=== PATIENT | male | born 1930 | race Caucasian/White ===

== ENCOUNTER 2017-02-06 23:31 | Inpatient (IN) | payer MEDICARE, OTHER ==
[~2017-02-06] VITALS: Ht 188 cm; Wt 68.0 kg
[2017-02-06] MEDS ORDERED: Zosyn 4.5gm inj ONE (23:34)
[2017-02-06 23:40] VITALS: BP 71/45
[2017-02-06] MEDS ORDERED: MILK OF MA2400 MG/10 ORAL (23:51)
[2017-02-06] MEDS ORDERED: ATORVASTATIN CA10 MG ORAL (23:51)
[2017-02-06] MEDS ORDERED: PSYLLIUM PACKET PO (23:51)
[2017-02-06] MEDS ORDERED: AMLODIPINE BES2.5 MG ORAL (23:51)
[2017-02-06] MEDS ORDERED: ZOFRAN4 M3 ORAL (23:51)
[2017-02-06] MEDS ORDERED: VITAMIN B-1100 MG ORAL (23:51)
[2017-02-06] MEDS ORDERED: RIVASTIGMINE1 EAC1 TD (23:51)
[2017-02-06] MEDS ORDERED: DOCUSATE SODIU100 MG ORAL (23:51)
[2017-02-06] MEDS ORDERED: METOPROLOL TART25 MG ORAL (23:51)
[2017-02-06] MEDS ORDERED: ASPIRIN EC81 MG ORAL (23:51)
[2017-02-06] MEDS ORDERED: BISACODYL10 M1 RC (23:51)
[2017-02-06] MEDS ORDERED: TYLENOL325 MG ORAL (23:51)
[2017-02-06] MEDS ORDERED: NAMENDA10 MG ORAL (23:51)
[2017-02-06] MEDS ORDERED: VITAMIN D1000 UNI1 ORAL (23:51)
[2017-02-06] MEDS ORDERED: TRAMADOL HCL50 MG ORAL (23:51)
[2017-02-06] MEDS ORDERED: LOSARTAN POTASS25 MG ORAL (23:51)
[2017-02-06] MEDS ORDERED: MIRTAZAPINE7.5 MG ORAL (23:51)
[2017-02-06] MEDS ORDERED: FAMOTIDINE20 MG ORAL (23:51)
[2017-02-07] VITALS (7 sets, daily range): BP systolic 74–133; BP diastolic 40–84
[2017-02-07 00:01] LABS: MEAN CORPUSCULAR HEMOGLOBIN 29.8 PG (27.0-31.0); MEAN CORPUSCULAR HGB CONC 32.9 G/DL (32.0-36.0); MEAN CORPUSCULAR VOLUME 91 FL (80-99); MEAN PLATELET VOLUME 6.8 FL (6.5-10.1); PLATELET COUNT 261 K/UL (150-450); RED BLOOD COUNT 3.96 M/UL (4.70-6.10); RED CELL DISTRIBUTION WIDTH 12.6 % (11.6-14.8)
[2017-02-07 00:15] LABS: TROPONIN I < 0.30 ng/mL (<=0.30)
[2017-02-07] MEDS ORDERED: Acetaminophen 650 MG SUPP RECTAL ONE (00:15)
[2017-02-07 00:17] LABS: WHITE BLOOD COUNT 34.9 K/UL (4.8-10.8)
[2017-02-07 00:18] LABS: ALANINE AMINOTRANSFERASE 6 U/L (3-41); ALBUMIN/GLOBULIN RATIO 0.8 (1.0-2.7); ANION GAP 21 (5-15); ASPARTATE AMINO TRANSFERASE 21 U/L (5-40); CALCIUM 9.9 mg/dL (8.6-10.2); CARBON DIOXIDE 20 mEQ/L (20-30); CHLORIDE 99 mEQ/L (98-107); CREATININE 2.9 mg/dL (0.7-1.2); HEMOLYSIS 2; POTASSIUM 4.8 mEQ/L (3.4-4.9); SODIUM 140 mEQ/L (135-145); TOTAL PROTEIN 7.2 g/dL (6.6-8.7)
[2017-02-07 00:23] LABS: REFLEX LACTIC ACID YES OR NO YES
[2017-02-07 00:28] LABS: CKMB < 1.5 ng/mL (< 6.7)
[2017-02-07 00:57] LABS: KETONES,URINE 1+ (NEGATIVE); LEUKOCYTE ESTERASE ,URINE 3+ (NEGATIVE); NITRITE,URINE NEGATIVE (NEGATIVE); PH,URINE 5 (4.5-8.0); PROTEIN,URINE 3+ (NEGATIVE); UROBILINOGEN,URINE NORMAL MG/DL (0.0-1.0)
[2017-02-07] MEDS ORDERED: Piperacillin/Tazobactam 4.5 GM in NS 110 ML IVPB ONE (01:00)
[2017-02-07 01:04] LABS: APPEARANCE,URINE CLOUDY
[2017-02-07 01:05] LABS: AMORPHOUS SEDIMENT,UR MANY /LPF; BACTERIA,URINE MANY /HPF; RBC,URINE 20-30 /HPF (0 - 0)
[2017-02-07 01:12] LABS: BAND NEUTROPHILS % (MANUAL) 24 % (0-8); BASOPHILS % (MANUAL) 0 % (0-2); EOSINOPHILS % (MANUAL) 0 % (0-3); LYMPHOCYTES % (MANUAL) 18 % (20-45); NEUTROPHILS % (MANUAL) 53 % (45-75); PLATELET ESTIMATE ADEQUATE; PLATELET MORPHOLOGY NORMAL; TOTAL CELLS COUNTED 100
--- NOTE | 2017-02-07 01:54 | Emergency Room Report ---
History of Present Illness General Chief Complaint: Altered Level of Consciousness Source: Medical Record Present Illness HPI This is an 86-year-old male with a history of dementia, hypertension. [facility]. He is a DO NOT RESUSCITATE/DO NOT INTUBATE. He presents with chief complaint of altered mental status and increasing weakness. [facility] Onset today. No noted vomiting or diarrhea. No cough or congestion. Allergies: Coded Allergies: No Known Allergies (Unverified , 02/06/17) Patient History Past Medical History: see triage record, old chart reviewed Past Surgical History: other Pertinent Family History: none Social History: Denies: smoking Immunizations: other Reviewed Nursing Documentation: PMH: Agreed, PSxH: Agreed Nursing Documentation-PMH Hx Cardiac Problems: Yes - HYPERLIPIDEMIA,ARTIFICIAL RT HIP Hx Hypertension: Yes History Of Psychiatric Problem: Yes - DEPRESSION,ALZHEIMERS Review of Systems Constitutional: Reports: weakness Eye: Denies: blurred vision, eye pain ENT: Denies: ear pain, nose congestion, throat swelling Respiratory: Denies: cough, shortness of breath Cardiovascular: Denies: chest pain, palpitations Gastrointestinal: Denies: abdominal pain, diarrhea, nausea, vomiting Musculoskeletal: Denies: back pain, joint pain Skin: Denies: rash Neurological: Denies: headache, numbness Endocrine: Denies: increased thirst, increased urine Hematologic/Lymphatic: Denies: easy bruising All Other Systems: limited - Limited secondary to dementia Physical Exam Vital Signs Date Time Temp Pulse Resp B/P Pulse Ox O2 Delivery O2 Flow Rate FiO2 02/06/17 23:32 97.7 95 24 71/45 95 Nasal Cannula 3.0 vitals with fever and hypotension Sp02 EP Interpretation: reviewed, normal General Appearance: moderate distress, Stupor Head: normocephalic, atraumatic Eyes: bilateral eye EOMI, bilateral eye PERRL ENT: normal pharynx Neck: full range of motion, supple, no meningismus Respiratory: chest non-tender, lungs clear, normal breath sounds Cardiovascular #1: regular rate, rhythm, no murmur Gastrointestinal: normal bowel sounds, non tender, no mass, no organomegaly, no bruit, non-distended Musculoskeletal: back normal, normal range of motion Neurologic: grossly normal Skin: warm/dry Procedures Critical Care Time Critical Care Time Critical care is mandated in this patient who presented with septic shock secondary to UTI. Patient require my urgent intervention to attenuate the risks of metabolic collapse which may lead to cardiovascular collapse and . Critical care time is 35 minutes excluding any reportable procedure. Critical care time included evaluation, multiple reevaluation, looking at old charts, interpreting laboratory and diagnostic data, discussing case with patient and family and consultants, and charting. Medical Decision Making Diagnostic Impression: Primary Impression: Septic shock Additional Impressions: UTI (urinary tract infection) Qualified Codes: N30.00 - Acute cystitis without hematuria Acute renal failure (ARF) Qualified Codes: N17.9 - Acute kidney failure, unspecified Anemia, chronic renal failure Qualified Codes: N18.9 - Chronic kidney disease, unspecified; D63.1 - Anemia in chronic kidney disease Proteinuria Encephalopathy acute ER Course Patient presents in septic shock secondary to UTI. Antibiotics given. IV fluid given. Blood pressure slowly improve with IV fluid. Patient will be admitted for IV antibiotics. He is a DO NOT RESUSCITATE and DO NOT INTUBATE. Comfort Care only. His primary care Dr. is Dr. Yair Locke at [facility]. He admits to Dr. Hughes. I contacted Dr. Hughes for admission. Laboratory Tests Test 02/06/17 23:42 02/07/17 00:50 White Blood Count 34.9 K/UL (4.8-10.8) *H Red Blood Count 3.96 M/UL (4.70-6.10) L Hemoglobin 11.8 G/DL (14.2-18.0) L Hematocrit 35.9 % (42.0-52.0) L Mean Corpuscular Volume 91 FL (80-99) Mean Corpuscular Hemoglobin 29.8 PG (27.0-31.0) Mean Corpuscular Hemoglobin Concent 32.9 G/DL (32.0-36.0) Red Cell Distribution Width 12.6 % (11.6-14.8) Platelet Count 261 K/UL (150-450) Mean Platelet Volume 6.8 FL (6.5-10.1) Neutrophils (%) (Auto) % (45.0-75.0) Lymphocytes (%) (Auto) % (20.0-45.0) Monocytes (%) (Auto) % (1.0-10.0) Eosinophils (%) (Auto) % (0.0-3.0) Basophils (%) (Auto) % (0.0-2.0) Differential Total Cells Counted 100 Neutrophils % (Manual) 53 % (45-75) Lymphocytes % (Manual) 18 % (20-45) L Monocytes % (Manual) 5 % (1-10) Eosinophils % (Manual) 0 % (0-3) Basophils % (Manual) 0 % (0-2) Band Neutrophils 24 % (0-8) H Platelet Estimate Adequate Platelet Morphology Normal Red Blood Cell Morphology Normal Sodium Level 140 mEQ/L (135-145) Potassium Level 4.8 mEQ/L (3.4-4.9) Chloride Level 99 mEQ/L (98-107) Carbon Dioxide Level 20 mEQ/L (20-30) Anion Gap 21 (5-15) H Blood Urea Nitrogen 42 mg/dL (7-23) H Creatinine 2.9 mg/dL (0.7-1.2) H Estimat Glomerular Filtration Rate mL/min (>60) Glucose Level 90 mg/dL (74-106) Lactic Acid Level 4.30 mmol/L (0.66-2.22) H 4.00 mmol/L (0.66-2.22) H Calcium Level 9.9 mg/dL (8.6-10.2) Total Bilirubin 0.6 mg/dL (0.0-1.2) Aspartate Amino Transf (AST/SGOT) 21 U/L (5-40) Alanine Aminotransferase (ALT/SGPT) 6 U/L (3-41) Alkaline Phosphatase 72 U/L (40-129) Total Creatine Kinase 79 U/L (38-174) Creatine Kinase MB < 1.5 ng/mL (< 6.7) Creatine Kinase MB Relative Index 1.8 Troponin I < 0.30 ng/mL (<=0.30) Total Protein 7.2 g/dL (6.6-8.7) Albumin 3.4 g/dL (3.5-5.2) L Globulin 3.8 g/dL Albumin/Globulin Ratio 0.8 (1.0-2.7) L Urine Color Yellow Urine Appearance Cloudy Urine pH 5 (4.5-8.0) Urine Specific Kellogg 1.015 (1.005-1.035) Urine Protein 3+ (NEGATIVE) H Urine Glucose (UA) Negative (NEGATIVE) Urine Ketones 1+ (NEGATIVE) H Urine Occult Blood 5+ (NEGATIVE) H Urine Nitrite Negative (NEGATIVE) Urine Bilirubin Negative (NEGATIVE) Urine Urobilinogen Normal MG/DL (0.0-1.0) Urine Leukocyte Esterase 3+ (NEGATIVE) H Urine RBC 20-30 /HPF (0 - 0) H Urine WBC 10-15 /HPF (0 - 0) H Urine Squamous Epithelial Cells None /LPF (NONE/OCC) Urine Amorphous Sediment Many /LPF (NONE) H Urine Bacteria Many /HPF (NONE) H Lab Results Impression labs showed leukocytosis, renal failure. EKG Diagnostic Results Rate: normal Rhythm: NSR ST Segments: no acute changes Rhythm Strip Diag. Results EP Interpretation: yes Rate: 88 Rhythm: NSR, no PVC's, no ectopy Chest X-Ray Diagnostic Results EP Interpretation: Yes Findings: no consolidation, no effusion, no pneumothorax, no acute cardiopulmonary disease Number of Views: 1 Last Vital Signs Date Time Temp Pulse Resp B/P Pulse Ox O2 Delivery O2 Flow Rate FiO2 02/07/17 00:00 101.7 02/06/17 23:40 95 24 71/45 95 Nasal Cannula 3.0 Status: improved Disposition: ADMITTED INPATIENT Condition: Critical Referrals: NON PHYSICIAN (PCP) ALLIE LANDAVERDE M.D. Feb 07, 2017 01:54
--- NOTE | 2017-02-07 10:05 | History & Physical ---
History and Physical History & Physicial Chief Complaint: Altered Level of Consciousness This is an 86-year-old male with a history of dementia, hypertension. He is a [facility] patient. He is a DO NOT RESUSCITATE/DO NOT INTUBATE. He presents with chief complaint of altered mental status and increasing weakness. He came from [facility]. Onset today. No noted vomiting or diarrhea. No cough or congestion. Hx Cardiac Problems: Yes - HYPERLIPIDEMIA,ARTIFICIAL RT HIP Hx Hypertension: Yes History Of Psychiatric Problem: Yes - DEPRESSION,ALZHEIMERS Primary Impression: Septic shock Additional Impressions: UTI (urinary tract infection) Acute renal failure (ARF) Anemia, chronic renal failure Proteinuria Encephalopathy acute h/o Right hip surgery HTN ASHD OA high chol # [id number] MINERVA SAMUELS Feb 07, 2017 10:05
[2017-02-07] MEDS ORDERED: cefTRIAXone 1 GM in D5W 55 ML IVPB ONE (11:30)
[2017-02-07] MEDS: Pantoprazole Inj IVP SCH ×2 (12:02→21:37)
[2017-02-07] MEDS: D5NS 1,000 ML IV SCH ×2 (12:03→21:36)
--- NOTE | 2017-02-07 13:56 | Diagnostic Imaging Report ---
Indication: Chest pain Technique: One view of the chest Comparison: none Findings: There is some retrocardiac atelectasis or consolidation. Lungs and pleural spaces are otherwise clear. Heart size is upper limits of normal. Impression: Retrocardiac atelectasis and or consolidation.
[2017-02-07] MEDS: Piperacillin/Tazobactam 3.375 GM in D5W 110 ML IVPB SCH (21:36)
[2017-02-08 00:44] VITALS: BP 109/59
--- NOTE | 2017-02-08 01:28 | History and Physical Report ---
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, came in with altered level of consciousness. He has history of dementia and hypertension. He is DNR/DNI and he came from the correction. After initial evaluation in emergency room, the patient was found to be hypotensive with acute renal failure, evidence of urinary tract infection. The patient was fluid challenged, cultured up and was given antibiotic and is now being admitted for further management with a primary diagnosis of septic shock. PAST MEDICAL HISTORY: Significant for previous right femoral fracture, osteoarthritis, generalized weakness, history of encephalopathy, hypertension, hyperlipemia, Alzheimer's, major depressive disorder, and atherosclerotic heart disease. MEDICATIONS: Medications that the patient was taking includes amlodipine, laxative, vitamin D, losartan, Namenda, Lopressor, Remeron, Zofran, also Exelon, tramadol, Pepcid, aspirin, Lipitor, and thiamine. ALLERGIES: No known allergy. PHYSICAL EXAMINATION: VITAL SIGNS: At this point when seen in [facility], the patient is afebrile, pulse rate 70, blood pressure 92/65. The patient mumbles words. HEENT: Head is normocephalic. Sclerae not icteric. Tongue is dry. NECK: Rigid to all direction. LUNGS: No wheeze. Poor inspiratory effort. Decreased breath sound over the bases. HEART: Regular and occasional irregular beats. ABDOMEN: Soft. Duvall catheter in place. EXTREMITIES: Lower extremities, no edema. LABORATORY DATA: The patient has white blood cells 34,000, hemoglobin 11.8. BUN 42 and creatinine 2.9. Lactic level . Urine has 30 rbc's, 15 white bc's, and 3+ leukocyte esterase. IMPRESSION: The patient has septic shock, most likely urinary source. Also has acute renal failure. The patient has anemia, proteinuria, encephalopathy, and past history significant for hypertension, osteoarthritis, atherosclerotic heart disease, and high cholesterol. The patient is DNR and DNI. PLAN: The patient is started on Zosyn and IV Protonix, n.p.o., intravenous hydration, on aspirin and Lipitor. Renal parameters will be monitored and according to how the patient's condition evolves, we will make proper changes in our future management. Fabricio Zuniga M.D. DR: MIKE JOB#: [id number] CC:
[2017-02-08] MEDS: D5NS 1,000 ML IV SCH ×5 (02:55→18:09)
[2017-02-08 04:08] VITALS: BP 132/66
[2017-02-08 08:00] VITALS: BP 148/83
[2017-02-08 08:00] LABS: MEAN CORPUSCULAR HEMOGLOBIN 29.8 PG (27.0-31.0); MEAN CORPUSCULAR HGB CONC 32.4 G/DL (32.0-36.0); MEAN CORPUSCULAR VOLUME 92 FL (80-99); MEAN PLATELET VOLUME 7.4 FL (6.5-10.1); PLATELET COUNT 192 K/UL (150-450); RED BLOOD COUNT 3.48 M/UL (4.70-6.10); RED CELL DISTRIBUTION WIDTH 12.9 % (11.6-14.8)
[2017-02-08 08:08] LABS: WHITE BLOOD COUNT 26.4 K/UL (4.8-10.8)
[2017-02-08 08:23] LABS: ALANINE AMINOTRANSFERASE 12 U/L (3-41); ALBUMIN/GLOBULIN RATIO 0.7 (1.0-2.7); ANION GAP 14 (5-15); ASPARTATE AMINO TRANSFERASE 34 U/L (5-40); CARBON DIOXIDE 21 mEQ/L (20-30); CHLORIDE 109 mEQ/L (98-107); CHOLESTEROL 92 mg/dL (< 200); CHOLESTEROL/HDL RATIO 6.1 (3.3-4.4); CREATININE 1.3 mg/dL (0.7-1.2); CRP QUANT 19.5 mg/dL (< 0.5); HEMOLYSIS 3; LDL CHOLESTEROL (CALC.) 53 mg/dL (60-99); MAGNESIUM 1.7 mg/dL (1.7-2.5); PHOSPHORUS 2.2 mg/dL (2.5-4.8); POTASSIUM 3.8 mEQ/L (3.4-4.9); SODIUM 144 mEQ/L (135-145); TOTAL PROTEIN 6.4 g/dL (6.6-8.7); URIC ACID 5.2 mg/dL (3.0-7.5)
[2017-02-08 08:38] LABS: HEMOGLOBIN A1C 5.5 % (< 6.0)
[2017-02-08] MEDS ORDERED: Thiamine 100mg tab ORAL SCH (09:00)
[2017-02-08] MEDS ORDERED: Aspirin EC 81mg tab ORAL SCH (09:00)
[2017-02-08] MEDS: Piperacillin/Tazobactam 3.375 GM in D5W 110 ML IVPB SCH ×2 (09:31→21:52)
[2017-02-08] MEDS: Pantoprazole Inj IVP SCH (09:31)
[2017-02-08 10:16] LABS: BAND NEUTROPHILS % (MANUAL) 29 % (0-8); BASOPHILS % (MANUAL) 0 % (0-2); EOSINOPHILS % (MANUAL) 0 % (0-3); LYMPHOCYTES % (MANUAL) 9 % (20-45); NEUTROPHILS % (MANUAL) 60 % (45-75); PLATELET ESTIMATE ADEQUATE; PLATELET MORPHOLOGY NORMAL; TOTAL CELLS COUNTED 100
--- NOTE | 2017-02-08 10:39 | General Progress Note ---
Assessment/Plan Status: stable, other - improved Status Narrative hemodynamically improved . Assessment/Plan The patient has septic shock, most likely urinary source. Also has acute renal failure. The patient has anemia, proteinuria, encephalopathy, and past history significant for hypertension, osteoarthritis, atherosclerotic heart disease, and high cholesterol. The patient is DNR and DNI. Plan: Down IV fluid- Zosyn Med Surg Subjective ROS Limited/Unobtainable: No Constitutional: Reports: malaise, weakness Allergies: Coded Allergies: No Known Allergies (Unverified , 02/06/17) Objective Last 24 Hour Vital Signs Date Time Temp Pulse Resp B/P Pulse Ox O2 Delivery O2 Flow Rate FiO2 02/08/17 08:00 97.9 81 17 148/83 98 Room Air 87 02/08/17 04:08 98.5 88 20 132/66 97 Room Air 02/08/17 04:00 89 02/08/17 00:44 98.7 102 20 109/59 95 Room Air 02/08/17 00:00 93 02/07/17 20:00 89 02/07/17 20:00 98.1 84 14 89/47 92 Nasal Cannula 02/07/17 18:16 99.0 02/07/17 16:00 96.1 109 16 133/84 93 Room Air 02/07/17 16:00 104 02/07/17 12:00 87 02/07/17 12:00 98.1 82 16 112/83 93 Room Air Intake and Output 02/07/17 02/08/17 19:00 07:00 Intake Total 650 ml 735.0 ml Output Total 500 ml 1200 ml Balance 150 ml -465.0 ml Intake IV Total 650 ml 735.0 ml Output Urine Total 500 ml 1200 ml # Bowel Movements 4 1 Laboratory Tests 02/08/17 06:52: White Blood Count 26.4*H, Red Blood Count 3.48L, Hemoglobin 10.4L, Hematocrit 32.0L, Mean Corpuscular Volume 92, Mean Corpuscular Hemoglobin 29.8, Mean Corpuscular Hemoglobin Concent 32.4, Red Cell Distribution Width 12.9, Platelet Count 192, Mean Platelet Volume 7.4, Neutrophils (%) (Auto) , Lymphocytes (%) ( Auto) , Monocytes (%) (Auto) , Eosinophils (%) (Auto) , Basophils (%) (Auto) , Differential Total Cells Counted 100, Neutrophils % (Manual) 60, Lymphocytes % ( Manual) 9L, Monocytes % (Manual) 2, Eosinophils % (Manual) 0, Basophils % ( Manual) 0, Band Neutrophils 29H, Platelet Estimate Adequate, Platelet Morphology Normal, Red Blood Cell Morphology Normal, Sodium Level 144, Potassium Level 3.8, Chloride Level 109H, Carbon Dioxide Level 21, Anion Gap 14 , Blood Urea Nitrogen 28H, Creatinine 1.3#H, Estimat Glomerular Filtration Rate , Glucose Level 105, Hemoglobin A1c 5.5, Uric Acid 5.2, Calcium Level 9.0, Phosphorus Level 2.2L, Magnesium Level 1.7, Total Bilirubin 0.5, Gamma Glutamyl Transpeptidase 16, Aspartate Amino Transf (AST/SGOT) 34, Alanine Aminotransferase (ALT/SGPT) 12, Alkaline Phosphatase 74, C-Reactive Protein, Quantitative 19.5H, Pro-B-Type Natriuretic Peptide 4453H, Total Protein 6.4L, Albumin 2.8L, Globulin 3.6, Albumin/Globulin Ratio 0.7L, Triglycerides Level 118 , Cholesterol Level 92, LDL Cholesterol 53L, HDL Cholesterol 15, Cholesterol/ HDL Ratio 6.1H, Thyroid Stimulating Hormone (TSH) 3.990 Height (Feet): 6 Height (Inches): 2.00 Weight (Pounds): 150 General Appearance: no apparent distress, confused Cardiovascular: tachycardia Respiratory/Chest: decreased breath sounds Abdomen: soft Edema: no edema noted Arm (L), no edema noted Arm (R), no edema noted Leg (L), no edema noted Leg (R), no edema noted Pedal (L), no edema noted Pedal (R), no edema noted Generalized MINERVA SAMUELS Feb 08, 2017 10:39
--- NOTE | 2017-02-08 11:27 | Cardiology Report ---
APPROVED REPORT EKG Measurement Heart [id number] Normal sinus rhythm Normal ECG
[2017-02-08 12:00] VITALS: BP 133/77
[2017-02-08] MEDS ORDERED: Piperacillin/Tazobactam 3.375 GM in D5W 110 ML IVPB SCH (14:00)
[2017-02-08 16:32] VITALS: BP 129/72
[2017-02-08 20:00] VITALS: BP 143/68
[2017-02-09] VITALS: BP 127/66
[2017-02-09 03:48] VITALS: BP 136/69
[2017-02-09] MEDS: Piperacillin/Tazobactam 3.375 GM in D5W 110 ML IVPB SCH (05:57)
[2017-02-09 06:45] LABS: MEAN CORPUSCULAR HEMOGLOBIN 30.5 PG (27.0-31.0); MEAN CORPUSCULAR VOLUME 92 FL (80-99); MEAN PLATELET VOLUME 8.4 FL (6.5-10.1); PLATELET COUNT 158 K/UL (150-450); RED BLOOD COUNT 3.25 M/UL (4.70-6.10); RED CELL DISTRIBUTION WIDTH 12.8 % (11.6-14.8); WHITE BLOOD COUNT 19.9 K/UL (4.8-10.8)
[2017-02-09 07:02] LABS: ALANINE AMINOTRANSFERASE 9 U/L (3-41); ALBUMIN/GLOBULIN RATIO 0.7 (1.0-2.7); ANION GAP 15 (5-15); ASPARTATE AMINO TRANSFERASE 24 U/L (5-40); CALCIUM 8.9 mg/dL (8.6-10.2); CARBON DIOXIDE 22 mEQ/L (20-30); CHLORIDE 107 mEQ/L (98-107); CRP QUANT 10.2 mg/dL (< 0.5); HEMOLYSIS 3; MAGNESIUM 1.7 mg/dL (1.7-2.5); PHOSPHORUS 2.4 mg/dL (2.5-4.8); POTASSIUM 3.4 mEQ/L (3.4-4.9); SODIUM 144 mEQ/L (135-145); URIC ACID 3.9 mg/dL (3.0-7.5)
[2017-02-09] MEDS: Thiamine 100mg tab ORAL SCH (08:26)
[2017-02-09] MEDS: Aspirin EC 81mg tab ORAL SCH (08:26)
[2017-02-09] MEDS: Pantoprazole Inj IVP SCH (08:27)
[2017-02-09 08:57] VITALS: BP 107/58
[2017-02-09] MEDS ORDERED: Pantoprazole Inj IVP SCH (09:00)
--- NOTE | 2017-02-09 09:21 | General Progress Note ---
Assessment/Plan Status: stable Status Narrative WBCs lower- Assessment/Plan The patient has BC + for staph aureus septic shock, most likely urinary source. Also has acute renal failure. The patient has anemia, proteinuria, encephalopathy, and past history significant for hypertension, osteoarthritis, atherosclerotic heart disease, and high cholesterol. The patient is DNR and DNI. Plan: Down IV fluid- Zosyn to IV Vanco and PO Bactrim CXR stat monitor labs Subjective ROS Limited/Unobtainable: No Constitutional: Reports: malaise Allergies: Coded Allergies: No Known Allergies (Unverified , 02/06/17) Objective Last 24 Hour Vital Signs Date Time Temp Pulse Resp B/P Pulse Ox O2 Delivery O2 Flow Rate FiO2 02/09/17 08:57 98.8 52 20 107/58 95 Room Air 02/09/17 03:48 97.6 56 19 136/69 97 Room Air 02/09/17 00:00 97.7 55 19 127/66 97 Room Air 02/08/17 20:00 97.7 65 20 143/68 97 Room Air 02/08/17 16:32 98.6 62 20 129/72 97 Room Air 02/08/17 12:00 72 02/08/17 12:00 97.9 84 18 133/77 97 Room Air 84 Intake and Output 02/08/17 02/09/17 19:00 07:00 Intake Total 612.5 ml Output Total 960 ml 1050 ml Balance -960 ml -437.5 ml Intake IV Total 612.5 ml Output Urine Total 960 ml 1050 ml # Voids 1 # Bowel Movements 1 Laboratory Tests 02/09/17 05:40: White Blood Count 19.9H, Red Blood Count 3.25L, Hemoglobin 9.9L, Hematocrit 30.0L, Mean Corpuscular Volume 92, Mean Corpuscular Hemoglobin 30.5, Mean Corpuscular Hemoglobin Concent 33.0, Red Cell Distribution Width 12.8, Platelet Count 158, Mean Platelet Volume 8.4, Neutrophils (%) (Auto) , Lymphocytes (%) ( Auto) , Monocytes (%) (Auto) , Eosinophils (%) (Auto) , Basophils (%) (Auto) , Neutrophils % (Manual) [Pending], Lymphocytes % (Manual) [Pending], Platelet Estimate [Pending], Platelet Morphology [Pending], Sodium Level 144, Potassium Level 3.4, Chloride Level 107, Carbon Dioxide Level 22, Anion Gap 15, Blood Urea Nitrogen 18, Creatinine 1.0, Estimat Glomerular Filtration Rate , Glucose Level 93, Uric Acid 3.9, Calcium Level 8.9, Phosphorus Level 2.4L, Magnesium Level 1.7, Total Bilirubin 0.6, Aspartate Amino Transf (AST/SGOT) 24, Alanine Aminotransferase (ALT/SGPT) 9, Alkaline Phosphatase 123, C-Reactive Protein, Quantitative 10.2H, Pro-B-Type Natriuretic Peptide 4521H, Total Protein 6.0L, Albumin 2.6L, Globulin 3.4, Albumin/Globulin Ratio 0.7L Height (Feet): 6 Height (Inches): 2.00 Weight (Pounds): 150 General Appearance: no apparent distress, lethargic, confused Cardiovascular: normal rate, arrhythmia Respiratory/Chest: decreased breath sounds Abdomen: soft Edema: no edema noted Arm (L), no edema noted Arm (R), no edema noted Leg (L), no edema noted Leg (R), no edema noted Pedal (L), no edema noted Pedal (R), no edema noted Generalized MINERVA SAMUELS Feb 09, 2017 09:21
[2017-02-09] MEDS ORDERED: Vancomycin 1 GM in D5W 275 ML IVPB ONE (10:00)
--- NOTE | 2017-02-09 10:27 | Diagnostic Imaging Report ---
Indication: Cough Comparison: 02/06/17 A single view chest radiograph was obtained. Findings: No definite infiltrate or pulmonary vascular congestion identified. The heart is enlarged. The aorta is mildly enlarged consistent with atherosclerotic vascular disease. The bones are osteopenic. Impression: No acute disease
[2017-02-09] MEDS: Bactrim DS (160mg/800mg) tab ORAL SCH ×2 (10:28→17:15)
[2017-02-09 10:49] LABS: BAND NEUTROPHILS % (MANUAL) 16 % (0-8); BASOPHILS % (MANUAL) 0 % (0-2); EOSINOPHILS % (MANUAL) 3 % (0-3); LYMPHOCYTES % (MANUAL) 4 % (20-45); NEUTROPHILS % (MANUAL) 74 % (45-75); PLATELET ESTIMATE ADEQUATE; PLATELET MORPHOLOGY NORMAL; TOTAL CELLS COUNTED 100
[2017-02-09] MEDS ORDERED: Potassium Phosphate 20 MM in NS 275 ML IV ONE (11:00)
[2017-02-09 12:50] VITALS: BP 106/57
[2017-02-09 16:12] VITALS: BP 110/61
[2017-02-09] MEDS ORDERED: D5NS 1000ml IV ONE (16:20)
[2017-02-09] MEDS: D5NS 1,000 ML IV SCH (17:00)
[2017-02-09 20:00] VITALS: BP 124/69
[2017-02-10] VITALS: BP 138/58
[2017-02-10] MEDS: D5NS 1,000 ML IV SCH (00:01)
[2017-02-10 04:00] VITALS: BP 129/68
[2017-02-10 06:36] LABS: BASOPHILS % (AUTO) 1.1 % (0.0-2.0); EOSINOPHILS % (AUTO) 2.5 % (0.0-3.0); LYMPHOCYTES % (AUTO) 12.6 % (20.0-45.0); MEAN CORPUSCULAR HEMOGLOBIN 29.9 PG (27.0-31.0); MEAN CORPUSCULAR HGB CONC 32.5 G/DL (32.0-36.0); MEAN CORPUSCULAR VOLUME 92 FL (80-99); MEAN PLATELET VOLUME 8.3 FL (6.5-10.1); MONOCYTES % (AUTO) 5.9 % (1.0-10.0); NEUTROPHILS % (AUTO) 77.8 % (45.0-75.0); PLATELET COUNT 169 K/UL (150-450); RED BLOOD COUNT 3.47 M/UL (4.70-6.10); RED CELL DISTRIBUTION WIDTH 12.9 % (11.6-14.8); WHITE BLOOD COUNT 12.9 K/UL (4.8-10.8)
[2017-02-10 07:32] LABS: ALANINE AMINOTRANSFERASE 11 U/L (3-41); ALBUMIN/GLOBULIN RATIO 0.9 (1.0-2.7); ANION GAP 16 (5-15); ASPARTATE AMINO TRANSFERASE 26 U/L (5-40); CALCIUM 8.8 mg/dL (8.6-10.2); CARBON DIOXIDE 22 mEQ/L (20-30); CHLORIDE 105 mEQ/L (98-107); CREATININE 0.9 mg/dL (0.7-1.2); HEMOLYSIS 12; PHOSPHORUS 3.2 mg/dL (2.5-4.8); POTASSIUM 3.8 mEQ/L (3.4-4.9); SODIUM 143 mEQ/L (135-145); TOTAL PROTEIN 5.8 g/dL (6.6-8.7); URIC ACID 3.3 mg/dL (3.0-7.5)
[2017-02-10 08:00] VITALS: BP 140/70
[2017-02-10] MEDS: Aspirin EC 81mg tab ORAL SCH (08:34)
[2017-02-10] MEDS: Thiamine 100mg tab ORAL SCH (08:34)
[2017-02-10] MEDS: Pantoprazole Inj IVP SCH (08:35)
[2017-02-10] MEDS: Bactrim DS (160mg/800mg) tab ORAL SCH ×2 (08:35→17:57)
[2017-02-10 08:42] LABS: OTHERS PATHOLOGIST COMMENT
[2017-02-10 12:00] VITALS: BP 137/73
[2017-02-10 16:15] VITALS: BP 111/69
--- NOTE | 2017-02-10 17:32 | General Progress Note ---
Assessment/Plan Status: stable Status Narrative WBCs lower Assessment/Plan The patient has BC + for staph aureus septic shock, Resolved urinary Infection acute renal failure. Resolved anemia, proteinuria, encephalopathy, and past history significant for hypertension, osteoarthritis, atherosclerotic heart disease, and high cholesterol. The patient is DNR and DNI. Plan: Down IV fluid- Zosyn to IV Vanco and PO Bactrim CXR stat: NAD monitor labs DC in am Subjective ROS Limited/Unobtainable: No Constitutional: Reports: malaise, weakness Allergies: Coded Allergies: No Known Allergies (Unverified , 02/06/17) Objective Last 24 Hour Vital Signs Date Time Temp Pulse Resp B/P Pulse Ox O2 Delivery O2 Flow Rate FiO2 02/10/17 16:15 98.6 71 22 111/69 95 Room Air 02/10/17 12:00 98.2 70 19 137/73 96 Room Air 02/10/17 08:00 97.9 69 19 140/70 98 Room Air 02/10/17 04:00 98.1 18 20 129/68 97 Room Air 02/10/17 00:00 97.5 70 18 138/58 96 02/09/17 20:00 98.4 65 20 124/69 95 Room Air Intake and Output 02/09/17 02/10/17 19:00 07:00 Intake Total 898.408 ml 486.9667 ml Output Total 250 ml 400 ml Balance 648.408 ml 86.9667 ml Intake Oral 240 ml IV Total 658.408 ml 486.9667 ml Output Urine Total 250 ml 400 ml # Bowel Movements 2 Current Medications Medications (Trade) Dose Ordered Sig/Leatha Route PRN Reason Start Time Stop Time Status Last Admin Dose Admin Acetaminophen (Tylenol) 650 mg Q6H PRN ORAL Prn Pain/Headache/Temp > 101 02/08/17 22:00 03/10/17 21:59 Aspirin (Ecotrin) 81 mg DAILY ORAL 02/09/17 09:00 03/11/17 08:59 02/10/17 08:34 Atorvastatin Calcium (Lipitor) 10 mg BEDTIME ORAL 02/08/17 21:00 03/10/17 20:59 02/09/17 20:53 Dextrose/Sodium Chloride (D5ns) 1,000 ml @ 40 mls/hr Q24H IV 02/08/17 17:00 03/10/17 16:59 02/10/17 00:01 Pantoprazole (Protonix) 40 mg DAILY IVP 02/09/17 09:00 03/11/17 08:59 02/10/17 08:35 Thiamine HCl (Vitamin B1) 100 mg DAILY ORAL 02/09/17 09:00 03/11/17 08:59 02/10/17 08:34 Trimethoprim/ Sulfamethoxazole 1 ea 1 ea TWICE A DAY ORAL 02/09/17 10:00 02/16/17 09:59 02/10/17 08:35 Vancomycin HCl/ Dextrose (Vancomycin/D5W) 275 ml @ 183.708 mls/hr ONCE ONCE IVPB 02/10/17 18:00 02/10/17 19:29 Laboratory Tests 02/10/17 05:40: White Blood Count 12.9H, Red Blood Count 3.47L, Hemoglobin 10.4L, Hematocrit 31.9L, Mean Corpuscular Volume 92, Mean Corpuscular Hemoglobin 29.9, Mean Corpuscular Hemoglobin Concent 32.5, Red Cell Distribution Width 12.9, Platelet Count 169, Mean Platelet Volume 8.3, Neutrophils (%) (Auto) 77.8H, Lymphocytes ( %) (Auto) 12.6L, Monocytes (%) (Auto) 5.9, Eosinophils (%) (Auto) 2.5, Basophils (%) (Auto) 1.1, Sodium Level 143, Potassium Level 3.8, Chloride Level 105, Carbon Dioxide Level 22, Anion Gap 16H, Blood Urea Nitrogen 14, Creatinine 0.9, Estimat Glomerular Filtration Rate , Glucose Level 89, Uric Acid 3.3, Calcium Level 8.8, Phosphorus Level 3.2, Magnesium Level 3.0H, Total Bilirubin 0.6, Aspartate Amino Transf (AST/SGOT) 26, Alanine Aminotransferase (ALT/SGPT) 11, Alkaline Phosphatase 123, Total Protein 5.8L, Albumin 2.8L, Globulin 3.0, Albumin/Globulin Ratio 0.9L, Random Vancomycin Level 4.9 Height (Feet): 6 Height (Inches): 2.00 Weight (Pounds): 150 General Appearance: no apparent distress Cardiovascular: normal rate Respiratory/Chest: decreased breath sounds Objective other pE not changed MINERVA SAMUELS 23, 2017 17:32
[2017-02-10] MEDS ORDERED: Vancomycin 1.25 GM in D5W 275 ML IVPB ONE (18:00)
[2017-02-10 20:00] VITALS: BP 147/77
[2017-02-10] MEDS: Tamsulosin 0.4mg cap ORAL SCH (21:12)
[2017-02-11] VITALS: BP 143/72
[2017-02-11 04:00] VITALS: BP 147/71
[2017-02-11 07:31] LABS: BASOPHILS % (AUTO) 0.7 % (0.0-2.0); EOSINOPHILS % (AUTO) 4.9 % (0.0-3.0); LYMPHOCYTES % (AUTO) 19.5 % (20.0-45.0); MEAN CORPUSCULAR HEMOGLOBIN 30.2 PG (27.0-31.0); MEAN CORPUSCULAR HGB CONC 33.2 G/DL (32.0-36.0); MEAN CORPUSCULAR VOLUME 91 FL (80-99); MEAN PLATELET VOLUME 8.9 FL (6.5-10.1); MONOCYTES % (AUTO) 8.8 % (1.0-10.0); NEUTROPHILS % (AUTO) 66.1 % (45.0-75.0); PLATELET COUNT 202 K/UL (150-450); RED BLOOD COUNT 3.71 M/UL (4.70-6.10); RED CELL DISTRIBUTION WIDTH 12.6 % (11.6-14.8); WHITE BLOOD COUNT 9.7 K/UL (4.8-10.8)
[2017-02-11 07:48] LABS: ALANINE AMINOTRANSFERASE 10 U/L (3-41); ALBUMIN/GLOBULIN RATIO 0.7 (1.0-2.7); ANION GAP 18 (5-15); ASPARTATE AMINO TRANSFERASE 20 U/L (5-40); CARBON DIOXIDE 21 mEQ/L (20-30); CHLORIDE 102 mEQ/L (98-107); CREATININE 0.9 mg/dL (0.7-1.2); HEMOLYSIS 2; PHOSPHORUS 2.9 mg/dL (2.5-4.8); POTASSIUM 3.3 mEQ/L (3.4-4.9); SODIUM 141 mEQ/L (135-145); TOTAL PROTEIN 6.4 g/dL (6.6-8.7)
[2017-02-11 08:00] VITALS: BP 134/74
[2017-02-11] MEDS: Thiamine 100mg tab ORAL SCH (08:29)
[2017-02-11] MEDS: Aspirin EC 81mg tab ORAL SCH (08:29)
[2017-02-11] MEDS: Pantoprazole Inj IVP SCH (08:29)
[2017-02-11] MEDS: Bactrim DS (160mg/800mg) tab ORAL SCH ×2 (08:29→18:03)
[2017-02-11] MEDS ORDERED: KCl 10% 40mEq/30ml liquid ORAL ONE (09:30)
[2017-02-11] MEDS ORDERED: Tubing IV Secondary IV ONE ×2 (10:21→21:10)
[2017-02-11] MEDS ORDERED: NS 275ml ONE (10:21)
[2017-02-11] MEDS ORDERED: D5NS 1000ml IV ONE ×2 (10:21→21:10)
[2017-02-11] MEDS ORDERED: Sterile Water Irrig 1000ml IRRIG ONE (10:21)
[2017-02-11] MEDS ORDERED: Vancomycin 1.5gm/D5W 300ml 325 ML IVPB ONE (10:30)
--- NOTE | 2017-02-11 11:48 | General Progress Note ---
Assessment/Plan Status: stable Assessment/Plan The patient has BC + for staph aureus septic shock, Resolved urinary Infection acute renal failure. Resolved anemia, proteinuria, encephalopathy, and past history significant for hypertension, osteoarthritis, atherosclerotic heart disease, and high cholesterol. The patient is DNR and DNI. Plan: DC ECF on bactrim- On Vanco and PO Bactrim currently CXR stat: NAD monitor labs Subjective ROS Limited/Unobtainable: No Constitutional: Reports: malaise Allergies: Coded Allergies: No Known Allergies (Unverified , 02/06/17) Objective Last 24 Hour Vital Signs Date Time Temp Pulse Resp B/P Pulse Ox O2 Delivery O2 Flow Rate FiO2 02/11/17 08:00 97.0 78 18 134/74 97 Room Air 02/11/17 04:00 96.8 65 20 147/71 95 Room Air 02/11/17 00:00 97.7 67 18 143/72 97 Room Air 02/10/17 20:00 97.9 68 18 147/77 96 Room Air 02/10/17 16:15 98.6 71 22 111/69 95 Room Air 02/10/17 12:00 98.2 70 19 137/73 96 Room Air Intake and Output 02/10/17 02/11/17 19:00 07:00 Intake Total 1000 ml 250 ml Output Total 700 ml Balance 300 ml 250 ml Intake Oral 720 ml 250 ml IV Total 280 ml Output Urine Total 700 ml # Voids 5 # Bowel Movements 2 3 Current Medications Medications (Trade) Dose Ordered Sig/Leatha Route PRN Reason Start Time Stop Time Status Last Admin Dose Admin Acetaminophen (Tylenol) 650 mg Q6H PRN ORAL Prn Pain/Headache/Temp > 101 02/08/17 22:00 03/10/17 21:59 Aspirin (Ecotrin) 81 mg DAILY ORAL 02/09/17 09:00 03/11/17 08:59 02/11/17 08:29 Atorvastatin Calcium (Lipitor) 10 mg BEDTIME ORAL 02/08/17 21:00 03/10/17 20:59 02/10/17 21:12 Pantoprazole (Protonix) 40 mg DAILY IVP 02/09/17 09:00 03/11/17 08:59 02/11/17 08:29 Tamsulosin HCl 0.4 mg 0.4 mg BEDTIME ORAL 02/10/17 21:00 03/12/17 20:59 02/10/17 21:12 Thiamine HCl (Vitamin B1) 100 mg DAILY ORAL 02/09/17 09:00 03/11/17 08:59 02/11/17 08:29 Trimethoprim/ Sulfamethoxazole (Bactrim-DS) 1 ea TWICE A DAY ORAL 02/09/17 10:00 02/16/17 09:59 02/11/17 08:29 Vancomycin HCl/ Dextrose (Vancomycin 1.5gm/D5W 300ml) 325 ml @ 162.5 mls/ hr ONCE ONCE IVPB 02/11/17 10:30 02/11/17 12:29 02/11/17 11:01 Laboratory Tests 02/11/17 05:35: White Blood Count 9.7, Red Blood Count 3.71L, Hemoglobin 11.2L, Hematocrit 33.7L , Mean Corpuscular Volume 91, Mean Corpuscular Hemoglobin 30.2, Mean Corpuscular Hemoglobin Concent 33.2, Red Cell Distribution Width 12.6, Platelet Count 202, Mean Platelet Volume 8.9, Neutrophils (%) (Auto) 66.1, Lymphocytes (% ) (Auto) 19.5L, Monocytes (%) (Auto) 8.8, Eosinophils (%) (Auto) 4.9H, Basophils (%) (Auto) 0.7, Sodium Level 141, Potassium Level 3.3L, Chloride Level 102, Carbon Dioxide Level 21, Anion Gap 18H, Blood Urea Nitrogen 9, Creatinine 0.9, Estimat Glomerular Filtration Rate , Glucose Level 73L, Calcium Level 9.0, Phosphorus Level 2.9, Total Bilirubin 0.7, Aspartate Amino Transf ( AST/SGOT) 20, Alanine Aminotransferase (ALT/SGPT) 10, Alkaline Phosphatase 101, Pro-B-Type Natriuretic Peptide 4972H, Total Protein 6.4L, Albumin 2.8L, Globulin 3.6, Albumin/Globulin Ratio 0.7L, Random Vancomycin Level 9.4 Height (Feet): 6 Height (Inches): 2.00 Weight (Pounds): 150 General Appearance: no apparent distress Objective other pE not changed MINERVA SAMUELS Feb 11, 2017 11:48
[2017-02-11] MEDS ORDERED: FLOMAX0.4 MG ORAL (11:50)
[2017-02-11] MEDS ORDERED: BACTRIM-DS1 EA ORAL (11:50)
--- NOTE | 2017-02-11 11:51 | Discharge Instructions ---
Discharge Instructions Discharge Instructions Follow up with: fu with PMD at [facility] Diet: cardiac 2 GM Na, low fat Special Instructions skin care routine- Fall percautions- aspiration percautions For Congestive Heart Failure Reminder Report to your physician any weight gain of 5 pounds or more in one week. MINERVA SAMUELS Feb 11, 2017 11:51
[2017-02-11 12:00] VITALS: BP 144/76
[2017-02-11 16:00] VITALS: BP 143/58
[2017-02-11] MEDS: Tamsulosin 0.4mg cap ORAL SCH (20:05)
[2017-02-11 20:15] VITALS: BP 147/77
--- NOTE | 2017-02-14 12:28 | Discharge Summary ---
Discharge Summary Hospital Course Date of Admission Feb 07, 2017 at 01:40 Date of Discharge Feb 11, 2017 at 21:11 Admitting Diagnosis sepsis, UTI HPI Boo Mathias is a 86 year old male who was admitted on Feb 07, 2017 at 01:40 for Sepsis,Urinary Tract Infection Hospital Course dc summary dictated #[id number] Discharge Medications New Medications: Tamsulosin HCl (Flomax) 0.4 Mg Cap.er.24h 0.4 MG ORAL BEDTIME for 30 Days, CAP Trimethoprim/Sulfamethoxazole (Bactrim Ds Tablet) 1 Each Tablet 1 EA ORAL TWICE A DAY for 10 Days, TAB Continued Medications: Acetaminophen (Tylenol) 325 Mg Tablet 650 MG ORAL Q6H PRN for Prn Pain/Headache/Temp > 101, TAB 0 Refills Aspirin Ec* (Aspirin Ec*) 81 Mg Tablet.dr 81 MG ORAL DAILY, TAB Atorvastatin Calcium* (Lipitor*) 10 Mg Tablet 10 MG ORAL BEDTIME, TAB Cholecalciferol (Vitamin D3)* (Vitamin D*) 1,000 Unit Tablet 1000 UNIT ORAL DAILY, TAB Docusate Sodium* (Docusate Sodium*) 100 Mg Capsule 100 MG ORAL TWICE A DAY, CAP Famotidine (Famotidine) 20 Mg Tablet 20 MG ORAL DAILY, TAB 0 Refills Magnesium Hydroxide* (Milk Of Magnesia*) 2,400 Mg/10 Ml Oral.susp 30 ML ORAL DAILY, ML Mirtazapine* (Mirtazapine*) 7.5 Mg Tablet 7.5 MG ORAL BEDTIME, TAB Thiamine Hcl* (Vitamin B-1*) 100 Mg Tablet 100 MG ORAL DAILY, TAB 0 Refills Discharge Condition Upon Discharge: stable Discharge Disposition Patient was discharged to SNF/Subacute Facility(03) Discharge Diagnoses: Discharge Instructions Discharge Instructions Follow up with: fu with PMD at [facility] Special Instructions I have been assigned to complete a D/C Summary on this account. I was not involved in the patient management Theresa Barber NP (Vanchtein) Feb 14, 2017 12:28
--- NOTE | 2017-02-15 00:58 | Discharge Summary 2 SIG ---
DATE OF ADMISSION: 02/07/2017 DATE OF DISCHARGE: 02/11/2017 REASON FOR ADMISSION: 86-year-old male, was brought in from [facility] with altered level of consciousness. The patient had an underlying history of dementia and hypertension. He was DNR DNI status. The patient had a history of atherosclerotic heart disease and high cholesterol. Upon evaluation, the patient was found to be hypotensive with acute renal failure and evidence of urinary tract infection. The patient was given fluid challenge. The patient was pancultured and started on empiric antibiotics and admitted to the hospital for further management. ADMITTING DIAGNOSES: 1. Septic shock. 2. Sepsis. 3. Urinary tract infection. 4. Acute renal failure. 5. Acute encephalopathy. 6. Anemia. 7. Proteinuria. HOSPITAL STAY: The patient was admitted. The patient was on the IV fluids and antibiotics. Urine culture and blood culture were positive for Staph aureus. Antibiotic regimen was optimized. The patient was discharged on oral Bactrim. Renal parameters and electrolytes were closely monitored. Creatinine was down to normal. Acute renal failure was likely secondary to hypotension as well as dehydration resolved. Lipid panel was within normal limits. TSH was within normal limits. Noted elevated inflammatory marker (CRP) initially. LFT stable. The patient was started on aspirin and statin. Hemoglobin and hematocrit were stable. No trend down. Continue closely monitored. Bowel regimen was instituted. Pain management was provided. DVT prophylaxis was provided. The patient will need to repeat blood culture at the nursing facility to ensure the resolution of bacteremia. The patient was stable for discharge. The patient was DNR /DNI status. FINAL DIAGNOSES: 1. Septic shock. 2. Sepsis with bacteremia/Staph aureus. 3. Urinary tract infection/Staph aureus. 4. Acute renal failure, resolved. 5. Anemia. 6. Proteinuria. 7. Acute on chronic encephalopathy likely secondary to sepsis. 8. Atherosclerotic heart disease. 9. High cholesterol. DISCHARGE MEDICATIONS: See medication reconciliation list. DISCHARGE INSTRUCTIONS: The patient was discharged to residential facility. FOLLOW UP: Followup with the medical doctor at the facility. Repeat blood culture to ensure that the blood cultures negative after treatment. Fabricio Fouladian, M.D. I have been assigned to dictate discharge summary on this account and I was not involved in the patient's management. Theresa Barber (Vanchtein) NLenkaPLenka DR: ESTHELA JOB#: [id number] CC: NAIMA
== END 2017-02-11 21:11 | DRG 871 ==
LOC: EDBD 23:31 → EMR 23:46 → 4E 02-07 01:40 → UNDOADMIN 02-07 01:40 → 2W 02-07 01:40 → EDBEDREQ 02-07 01:45 → 2E 02-07 22:46 → 4W 02-08 16:24
DX: A41.01 Sepsis due to Methicillin susceptible Staphylococcus aureus (principal); R65.21 Severe sepsis with septic shock; G93.40 Encephalopathy, unspecified; N17.9 Acute kidney failure, unspecified; N39.0 Urinary tract infection, site not specified; Z66 Do not resuscitate; I10 Essential (primary) hypertension; M19.90 Unspecified osteoarthritis, unspecified site; I25.10 Atherosclerotic heart disease of native coronary artery without angina pectoris; E78.00 Pure hypercholesterolemia, unspecified; E78.5 Hyperlipidemia, unspecified; D64.9 Anemia, unspecified
CPT/HCPCS: 36415; 71010; 80053; 80061; 80202; 81003; 82550; 82553; 82977; 83036; 83605; 83735; 83880; 84100; 84443; 84484; 84550; 85007; 85025; 86140; 87040; 87081; 87086; 87181; 93005

== ENCOUNTER 2017-02-17 19:50 | Emergency (ER) | payer MEDICARE, OTHER ==
[~2017-02-17] VITALS: Ht 182.9 cm; Wt 77.1 kg
[~2017-02-17 19:50] MED LIST: AMLODIPINE BES2.5 MG ORAL; ASPIRIN EC81 MG ORAL; ATORVASTATIN CA10 MG ORAL; BACTRIM-DS1 EA ORAL; BISACODYL10 M1 RC; DOCUSATE SODIU100 MG ORAL; FAMOTIDINE20 MG ORAL; FLOMAX0.4 MG ORAL; LOSARTAN POTASS25 MG ORAL; METOPROLOL TART25 MG ORAL; MILK OF MA2400 MG/10 ORAL; MIRTAZAPINE7.5 MG ORAL; NAMENDA10 MG ORAL; PSYLLIUM PACKET PO; RIVASTIGMINE1 EAC1 TD; TRAMADOL HCL50 MG ORAL; TYLENOL325 MG ORAL; VITAMIN B-1100 MG ORAL; VITAMIN D1000 UNI1 ORAL; ZOFRAN4 M3 ORAL
[2017-02-17 20:26] VITALS: BP 146/68
[2017-02-17] MEDS ORDERED: Lidocaine 1% MPF 10mg/ml 5ml ONE (21:27)
--- NOTE | 2017-02-17 21:57 | Emergency Room Report ---
History of Present Illness General Chief Complaint: Multiple Trauma/Fall Source: Patient Present Illness HPI 86-year-old M presents to ED for evaluation. Per EMS patient mechanical fall from his bed tonight. Patient resides at [facility]. Patient is DO NOT RESUSCITATE, comfort measures only. Patient sustained injury to head with laceration. Also complaining of right hip pain. Pain is throbbing, 5/10, nonradiating. No other aggravating or relieving factors. Denies any other injuries. Denies any other associated symptoms Allergies: Coded Allergies: No Known Allergies (Unverified , 02/06/17) Patient History Past Medical History: HTN, dementia Past Surgical History: other - bilateral hip replacement Pertinent Family History: none Social History: Denies: alcohol use, drug use, smoking Immunizations: UTD Reviewed Nursing Documentation: PMH: Agreed, PSxH: Agreed Nursing Documentation-PMH Hx Cardiac Problems: Yes - HYPERLIPIDEMIA,ARTIFICIAL RT HIP Hx Hypertension: Yes Hx Cancer: No Hx Gastrointestinal Problems: No Hx Neurological Problems: Yes Hx Alzheimer's Disease: Yes Review of Systems All Other Systems: negative except mentioned in HPI Physical Exam Vital Signs Date Time Temp Pulse Resp B/P Pulse Ox O2 Delivery O2 Flow Rate FiO2 02/17/17 19:47 98.2 76 18 144/66 96 Room Air Sp02 EP Interpretation: reviewed, normal General Appearance: no apparent distress, alert, GCS 15, non-toxic Head: normocephalic, other - 1cm occoipital scalp laceration Eyes: bilateral eye PERRL, bilateral eye normal inspection ENT: hearing grossly normal, normal pharynx, no angioedema, normal voice Neck: full range of motion, supple/symm/no masses Respiratory: chest non-tender, lungs clear, normal breath sounds, speaking full sentences Cardiovascular #1: regular rate, rhythm, no edema Gastrointestinal: normal inspection Rectal: deferred Genitourinary: no CVA tenderness Musculoskeletal: tender - R hip Neurologic: alert, oriented x3, responsive, motor strength/tone normal, sensory intact, speech normal Psychiatric: normal inspection Skin: normal inspection Lymphatic: normal inspection Procedures Laceration/Wound Repair Laceration/Wound Repair : Consent: Emergent Wound Location: other - scalp Wound's Depth, Shape: linear Wound Explored: clean Betadine Prep?: Yes Anesthesia: 1% Lidocaine Wound Debrided: minimal Wound Repaired With: annette Layer Closure?: No Sterile Dressing Applied?: Yes Splint Applied?: No Sling Applied?: No Patient Tolerated: Well Complications: None Medical Decision Making Diagnostic Impression: Primary Impression: Contusion, hip Qualified Codes: S70.01XA - Contusion of right hip, initial encounter Additional Impressions: Scalp laceration Qualified Codes: S01.01XA - Laceration without foreign body of scalp, initial encounter Fall Qualified Codes: W19.XXXA - Unspecified fall, initial encounter ER Course Hospital Course 86-year-old male presents ED with scalp laceration status post fall from bed. Right hip pain Differential diagnoses include: Fracture, dislocation, sprain, contusion Clinical course Patient placed on stretcher. After initial history and physical, I ordered imaging studies of head and hip/pelvis CT head unremarkable CT Pelvis no acute fx Xray femur unremarkable. hardware in place Scalp laceration repaired with annette Diagnosis - hip contusion, scalp laceration, fall Stable and discharged to SNF. wound care instructions given. Followup with PMD. Return to ED if symptoms recur or worsen Other X-Ray Diagnostic Results Other X-Ray Diagnostic Results : X-Ray Ordered: R femur EP Interpretation: Yes Findings: no fractures, no dislocation, no soft tissue swelling, other - hardware in place Number of Views: 3 CT/MRI/US Diagnostic Results CT/MRI/US Diagnostic Results : Imaging Test Ordered: CT pelvis, CT Head Impression CT Pelvis - streak artifact noted from prosthesis, no acute fx identified CT head - no acute process Last Vital Signs Date Time Temp Pulse Resp B/P Pulse Ox O2 Delivery O2 Flow Rate FiO2 02/17/17 20:26 98.3 63 12 146/68 97 Room Air Status: improved Disposition: XFER SNF Condition: Serious Patient Instructions: Laceration Care, Adult, [id number]-[id number] ISRA HERNANDEZ M.D. Feb 17, 2017 21:56
[2017-02-17 22:10] VITALS: BP 143/61
[2017-02-17 23:11] VITALS: BP 131/60
[2017-02-18 01:05] VITALS: BP 133/57
[2017-02-18 01:09] VITALS: BP 133/57
--- NOTE | 2017-02-18 09:42 | Diagnostic Imaging Report ---
Indication: Abdominal pain Technique: Continuous helical transaxial imaging of the pelvis was obtained from the iliac crest to the pubic symphysis. Coronal 2-D reformats were also obtained. Study obtained in a Siemens sensation [address] Total Dose length Product (DLP): [address] Dose Index Volume (CTDIvol): 11 mGy Comparison: None Findings: There is limitation on this study due to streak artifact from bilateral hip prostheses. Portions of the pelvic anatomy are obscured. That said there is no fracture identified. There is no obvious malalignment. Degenerative changes are noted in the lower part of the lumbar spine at L5-S1 with vacuum phenomenon endplate spurs. Diverticula are incidentally noted within the colon. Impression: No acute injury identified. Limited evaluation due to bilateral total hip prosthetics. Diverticulosis of the colon incidentally noted.
--- NOTE | 2017-02-18 10:10 | Diagnostic Imaging Report ---
Indication: Head trauma Technique: Contiguous 5 mm thick transaxial imaging of the head obtained in a Siemens Sensation [address] scanner. Soft tissue and bone windows generated. Total Dose length Product (DLP): [address] Dose Index Volume (CTDIvol): 70.38 mGy Comparison: none Findings: There is mild prominence of the ventricles, basal cisterns, and cerebral sulci consistent with atrophy. Mild, nonspecific, white matter hypoattenuation is noted throughout the brain consistent with chronic small vessel disease. There is no midline shift, edema, acute hemorrhage, mass effect, or abnormal extra-axial fluid collections. Bones and extra osseous soft tissues are unremarkable. Impression: No acute intracranial bleed, mass effect or edema. Mild atrophy of the brain. Nonspecific white matter hypoattenuation probably due to chronic small vessel disease. The CT scanner at [facility] is accredited by the [employer] and the scans are performed using protocols designed to limit radiation exposure to as low as reasonably achievable to attain images of sufficient resolution adequate for diagnostic evaluation.
--- NOTE | 2017-02-18 11:13 | Diagnostic Imaging Report ---
Indication: Pain Findings: 2 views of the right femur were obtained. There is a bipolar right hip hemiarthroplasty demonstrated. The bones are osteopenic. No fracture identified. There is a focus of ossification several centimeters below the lesser trochanter. This may be related to previous injury. Impression: No definite evidence of an acute fracture. Right hip hemiarthroplasty noted
== END 2017-02-18 01:09 ==
LOC: EDBD 19:50 → EMR 20:45
DX: S70.01XA Contusion of right hip, initial encounter (principal); S01.01XA Laceration without foreign body of scalp, initial encounter; W06.XXXA Fall from bed, initial encounter; Y92.199 Unspecified place in other specified residential institution as the place of occurrence of the external cause; Z66 Do not resuscitate; K57.30 Diverticulosis of large intestine without perforation or abscess without bleeding; Z96.643 Presence of artificial hip joint, bilateral; E78.5 Hyperlipidemia, unspecified; I10 Essential (primary) hypertension; G30.9 Alzheimer's disease, unspecified; F02.80 Dementia in other diseases classified elsewhere, unspecified severity, without behavioral disturbance, psychotic disturbance, mood disturbance, and anxiety
CPT/HCPCS: 70450; 72192

== ENCOUNTER 2019-10-26 21:49 | Emergency (ER) | payer MEDICARE, OTHER ==
[~2019-10-26] VITALS: Ht 177.8 cm; Wt 81.6 kg
--- NOTE | 2019-10-26 21:55 | Emergency Room Report ---
History of Present Illness General Source: Patient, Medical Record, EMS Present Illness HPI Is an 89-year-old male who has history of dementia. He is in a dementia luis at the retirement. He presents with chief complaint of head injury. He fell and hit his face on the wall. He then fell backward hitting his elbow. He complaining of pain to the nose. No loss of consciousness. He has dementia but able to tell me if he has pain. He has skin tears on the elbow. No fever chills but no nausea no vomiting. Denies any other complaint. Nothing made it better. Nothing made it worse. Allergies: Coded Allergies: No Known Allergies (Unverified , 02/06/17) Patient History Past Medical History: see triage record, old chart reviewed Past Surgical History: other Pertinent Family History: none Social History: Denies: smoking Immunizations: other Reviewed Nursing Documentation: PMH: Agreed; PSxH: Agreed Nursing Documentation-PMH Hx Cardiac Problems: Yes - HYPERLIPIDEMIA,ARTIFICIAL RT HIP Hx Hypertension: Yes Hx Cancer: No Hx Gastrointestinal Problems: No Hx Neurological Problems: Yes Hx Alzheimer's Disease: Yes Review of Systems Eye: Denies: eye pain, blurred vision ENT: Denies: ear pain, nose congestion, throat swelling Respiratory: Denies: cough, shortness of breath Cardiovascular: Denies: chest pain, palpitations Gastrointestinal: Denies: abdominal pain, diarrhea, nausea, vomiting Musculoskeletal: Denies: back pain, joint pain Skin: Denies: rash Neurological: Denies: headache, numbness Endocrine: Denies: increased thirst, increased urine Hematologic/Lymphatic: Denies: easy bruising All Other Systems: negative except mentioned in HPI Physical Exam Vitals unremarkable Sp02 EP Interpretation: reviewed, normal General Appearance: well appearing, no apparent distress, alert Head: normocephalic, other - Patient to bridge of nose and forehead. Eyes: bilateral eye PERRL, bilateral eye EOMI ENT: hearing grossly normal, normal pharynx Neck: full range of motion, supple, no meningismus Respiratory: chest non-tender, lungs clear, normal breath sounds Cardiovascular #1: regular rate, rhythm, no murmur Gastrointestinal: normal bowel sounds, non tender, no mass, no organomegaly, no bruit, non-distended Musculoskeletal: back normal, normal range of motion, gait/station normal, tender - Skin tear to the left elbow. Full range of motion. Psychiatric: mood/affect normal Medical Decision Making Diagnostic Impression: Primary Impression: Head injury, acute Qualified Codes: S09.90XA - Unspecified injury of head, initial encounter Additional Impressions: Degenerative disc disease, cervical Avulsion of skin of elbow Qualified Codes: S51.002A - Unspecified open wound of left elbow, initial encounter ER Course Patient with soft tissue injury from a fall. No fracture dislocation. His skin tear is superficial. Unfortunately nothing to be sutured since it is very thin. Wound dressed. Patient will be sent back to retirement. Other X-Ray Diagnostic Results Other X-Ray Diagnostic Results : X-Ray ordered: Left elbow x-rays # of Views/Limited Vs Complete: 3 View Indication: Pain EP Interpretation: Yes Interpretation: no dislocation, no soft tissue swelling, no fractures Impression: No acute disease Electronically Signed by: Porfirio Austin MD CT/MRI/US Diagnostic Results CT/MRI/US Diagnostic Results #1: Imaging Test Ordered: CT head Impression Read by radiologist. Atrophy. Negative for acute process. CT/MRI/US Diagnostic Results #2: Imaging Test Ordered: CT C-spine Impression Read by radiologist. Degenerative changes. No acute fracture. Status: improved Disposition: [facility] SNF Condition: Stable Additional Instructions: Fall precaution. Keep wound clean. Follow-up with your doctor in 7 days but return if worse. Porfirio Austin MD Oct 26, 2019 21:56
--- NOTE | 2019-10-26 21:56 | NUR ---
ED Nurse Note: pt presents to ED from [facility] via EMS arrival RA 26. per EMS pt tripped and fell and hit his head on a wall. pt reports that he lost his balance and is c/o back and neck px. pt placed in c-collar by paramedics, neck is not tender to palpation. pt's fall was unwitnessed. pt is mentating at baseline, AOx1. pt also has a 7 inch skin tear to the L elbow that is not actively bleeding
--- NOTE | 2019-10-26 21:58 | NUR ---
ED Nurse Note: pt's skin tear was cleaned and dressed by internal medicine veterinary technician without complications. pt toleratd procedure well, will be transported over to CT
[2019-10-26] MEDS ORDERED: Bacitracin Oint UD TOPIC ONE ×2 (22:00→22:14)
--- NOTE | 2019-10-26 22:10 | NUR ---
ED Nurse Note: pt returned from CT, Xray at bedside
[2019-10-26 22:21] VITALS: BP 148/61
--- NOTE | 2019-10-26 22:53 | Diagnostic Imaging Report ---
EXAM: CT Head Without Intravenous Contrast CLINICAL HISTORY: TRAUMA TECHNIQUE: Axial computed tomography images of the head/brain without intravenous contrast. CTDI is 62.7 mGy and DLP is 1457.7 mGy-cm. One or more of the following dose reduction techniques were used: automated exposure control, adjustment of the mA and/or kV according to patient size, use of iterative reconstruction technique. COMPARISON: 02/17/17 FINDINGS: Brain: No change in generalized cerebral atrophy. Patchy and confluent low attenuation in the periventricular white matter is most consistent with chronic small vessel disease. Negative for mass, mass- effect or intracranial hemorrhage. Ventricles: Unremarkable. No ventriculomegaly. Bones/joints: Unremarkable. No acute fracture. Soft tissues: Unremarkable. Sinuses: Unremarkable as visualized. No acute sinusitis. Mastoid air cells: Unremarkable as visualized. No mastoid effusion. IMPRESSION: No acute intracranial abnormality
--- NOTE | 2019-10-26 22:55 | Diagnostic Imaging Report ---
EXAM: CT Cervical Spine Without Intravenous Contrast CLINICAL HISTORY: TRAUMA TECHNIQUE: Axial computed tomography images of the cervical spine without intravenous contrast. CTDI is 8 mGy and DLP is 167 mGy-cm. One or more of the following dose reduction techniques were used: automated exposure control, adjustment of the mA and/or kV according to patient size, use of iterative reconstruction technique. COMPARISON: No relevant prior studies available. FINDINGS: Vertebrae: Unremarkable. No acute fracture. Discs/spinal canal/neural foramina: Advanced multilevel degenerative changes are present. No spinal canal stenosis. Soft tissues: Unremarkable. Other findings: Motion degraded study. IMPRESSION: No evidence of fracture or malalignment on a study degraded by patient motion.
[2019-10-27 00:45] VITALS: BP 152/75
--- NOTE | 2019-10-27 00:45 | NUR ---
ER DISCHARGE NOTE: Patient is cleared to be discharged per ERMD, pt is aox4, on room air, with stable vital signs. pt and family member were given dc instructions, pt was able to verbalize understanding, pt id band removed without complications. pt transported back to SNF via [facility].
--- NOTE | 2019-10-29 10:13 | Diagnostic Imaging Report ---
Indications:Pain, trauma Technique: Three or 4 views of the left elbow Comparison: None Findings:There is a small olecranon spur. No acute fractures. No dislocations. The joint spaces are preserved Impression: No acute bony trauma
== END 2019-10-27 00:45 ==
LOC: EDBD 21:49 → EMR 22:00
DX: S09.90XA Unspecified injury of head, initial encounter (principal); M50.30 Other cervical disc degeneration, unspecified cervical region; S51.002A Unspecified open wound of left elbow, initial encounter; F03.90 Unspecified dementia, unspecified severity, without behavioral disturbance, psychotic disturbance, mood disturbance, and anxiety; W19.XXXA Unspecified fall, initial encounter; Y92.129 Unspecified place in nursing home as the place of occurrence of the external cause; E78.5 Hyperlipidemia, unspecified; Z96.641 Presence of right artificial hip joint; I10 Essential (primary) hypertension
CPT/HCPCS: 70450; 72125; 99284